=== PATIENT | male | born 1990 | race Two or more races ===

== ENCOUNTER 2018-04-01 10:07 | Emergency (ER) | payer MEDICAID ==
[~2018-04-01] VITALS: Ht 172.7 cm; Wt 70.5 kg
[2018-04-01] MEDS ORDERED: SODIUM CHLORIDE 0.9% 250 ML IRRIG SOLUTION BOTTLE IRRIG ONE (11:30)
[2018-04-01] MEDS ORDERED: IBUPROFEN 600 MG TABLET PO ONE (11:30)
[2018-04-01] MEDS ORDERED: PERTUSS(ACELL),DIPH,TET VAC/PF 0.5 ML VIAL IM ONE (11:30)
[2018-04-01 11:50] VITALS: BP 131/82
== END 2018-04-01 11:51 | disposition home or self-care (01) ==
LOC: EMS 10:09
DX: S21.131A Puncture wound without foreign body of right front wall of thorax without penetration into thoracic cavity, initial encounter (principal); S00.83XA Contusion of other part of head, initial encounter; F15.10 Other stimulant abuse, uncomplicated; F19.90 Other psychoactive substance use, unspecified, uncomplicated; F17.200 Nicotine dependence, unspecified, uncomplicated; Y35.811A Legal intervention involving manhandling, law enforcement official injured, initial encounter; Y93.89 Activity, other specified; Y92.89 Other specified places as the place of occurrence of the external cause; Y99.8 Other external cause status
CPT/HCPCS: 90715; 93005